=== PATIENT | male | born 1950 | race African-American/Black ===

== ENCOUNTER 2018-03-15 20:02 | Emergency (ER) | payer BC, MEDICARE ==
[~2018-03-15] VITALS: Ht 170.2 cm; Wt 98.0 kg
[2018-03-15] MEDS ORDERED: KETOROLAC 60MG/2ML VIAL IM ONE (23:30)
[2018-03-16 01:30] VITALS: BP 119/71
== END 2018-03-16 02:56 | disposition home or self-care (01) ==
LOC: ER 20:02
DX: S40.011A Contusion of right shoulder, initial encounter (principal); S40.021A Contusion of right upper arm, initial encounter; S20.20XA Contusion of thorax, unspecified, initial encounter; S80.02XA Contusion of left knee, initial encounter; S90.01XA Contusion of right ankle, initial encounter; S60.212A Contusion of left wrist, initial encounter; E11.9 Type 2 diabetes mellitus without complications; M54.5 Low back pain; E03.8 Other specified hypothyroidism; W01.190A Fall on same level from slipping, tripping and stumbling with subsequent striking against furniture, initial encounter; Y93.89 Activity, other specified; Y92.512 Supermarket, store or market as the place of occurrence of the external cause; Z90.49 Acquired absence of other specified parts of digestive tract; Z98.890 Other specified postprocedural states
CPT/HCPCS: 71101; 73030; 73060; 73110; 73562; 73610; 93005; 96372; 99284; J1885